=== PATIENT | male | born 1965 | race Caucasian/White ===

== ENCOUNTER 2024-07-28 18:40 | Emergency (ER) | payer OTHER ==
[~2024-07-28] VITALS: Ht 177.8 cm; Wt 117.9 kg
[2024-07-28 19:01] VITALS: BP_SYST 135; PULSE 90; RESP 18; TEMP 98.2; O2SAT 97
[2024-07-28 19:47] LABS: BASOPHILS # (AUTO) 0.2 K/uL (0.0-0.2); EOSINOPHILS # (AUTO) 0.1 K/uL (0.0-0.4); EOSINOPHILS % (AUTO) 0.8 % (0.0-4.0); HEMATOCRIT 39.7 % (36-54); HEMOGLOBIN 13.6 g/dL (14.0-18.0); LYMPHOCYTES # (AUTO) 1.9 K/uL (1.0-5.5); LYMPHOCYTES % (AUTO) 16.6 % (20.5-51.5); MEAN CORPUSCULAR HEMOGLOBIN 33 pg (27-31); MEAN CORPUSCULAR HGB CONC 34 % (32-36); MEAN CORPUSCULAR VOLUME 96 fL (79.0-98.0); MONOCYTES % (AUTO) 9.4 % (1.7-9.3); NEUTROPHILS # (AUTO) 7.9 K/uL (1.8-7.7); NEUTROPHILS % (AUTO) 71.2 % (40.0-70.0); PLATELET COUNT (AUTO) 168 K/uL (130-430); RED BLOOD CELL COUNT(AUTO) 4.15 MIL/uL (4.2-6.2); RED CELL DISTRIBUTION WIDTH 13.9 % (9.0-15.0); WHITE BLOOD COUNT (AUTO) 11.2 K/uL (4.8-10.8)
[2024-07-28] MEDS: NACL 0.9% 1,000 ML IV ONE (19:48)
[2024-07-28 20:00] LABS: ANION GAP 10 (5-15); CALCIUM 7.7 mg/dL (8.4-11.0); CARBON DIOXIDE 29 mmol/L (23-29); CHLORIDE 88 mmol/L (98-107); CREATININE 1.14 mg/dL (0.55-1.30); GFR AFRICAN AMERICAN 85 mL/min (>90); GLUCOSE 199 mg/dL (74-106); SODIUM SERUM 127 mmol/L (136-145); UREA NITROGEN, BLOOD 15 mg/dL (8-21)
[2024-07-28 20:01] LABS: GFR NON AFRICAN-AMERICAN 70 mL/min (>90)
[2024-07-28 20:34] VITALS: BP_SYST 140; PULSE 85; RESP 19; TEMP 98.5; O2SAT 97
== END 2024-07-28 20:34 | disposition home or self-care (01) ==
LOC: SED 18:40
DX: J44.1 Chronic obstructive pulmonary disease with (acute) exacerbation (principal); R53.1 Weakness
CPT/HCPCS: 99285; 96360; 71045; 80048; 83880; 85025; 84484; 36415; 93005; J7030

== ENCOUNTER 2024-07-30 09:16 | Inpatient (IN) | payer MEDICAID, OTHER ==
[~2024-07-30] VITALS: Ht 177.8 cm; Wt 117.9 kg
[2024-07-30 09:28] VITALS: BP_SYST 144; PULSE 84; RESP 20; TEMP 97.9; O2SAT 95
[2024-07-30] MEDS: IPRATROPIUM/ALBUTEROL SULFATE 3 ML AMPUL.NEB (DUONEB) INH ONE (09:42)
[2024-07-30] MEDS: methylPREDNISolone SOD SUCC/PF 62.5 MG/ML VIAL IVP ONE (09:42)
[2024-07-30 09:50] LABS: BASOPHILS # (AUTO) 0.1 K/uL (0.0-0.2); BASOPHILS % (AUTO) 0.7 % (0.0-2.0); EOSINOPHILS % (AUTO) 0.4 % (0.0-4.0); HEMATOCRIT 41.8 % (36-54); HEMOGLOBIN 14.4 g/dL (14.0-18.0); LYMPHOCYTES % (AUTO) 7.7 % (20.5-51.5); MEAN CORPUSCULAR HEMOGLOBIN 32 pg (27-31); MEAN CORPUSCULAR HGB CONC 35 % (32-36); MEAN CORPUSCULAR VOLUME 94 fL (79.0-98.0); MONOCYTES # (AUTO) 0.9 K/uL (0.0-1.0); MONOCYTES % (AUTO) 7.1 % (1.7-9.3); NEUTROPHILS # (AUTO) 10.5 K/uL (1.8-7.7); NEUTROPHILS % (AUTO) 84.1 % (40.0-70.0); PLATELET COUNT (AUTO) 165 K/uL (130-430); RED BLOOD CELL COUNT(AUTO) 4.46 MIL/uL (4.2-6.2); RED CELL DISTRIBUTION WIDTH 13.6 % (9.0-15.0); WHITE BLOOD COUNT (AUTO) 12.5 K/uL (4.8-10.8)
[2024-07-30 10:25] LABS: CALCIUM 7.5 mg/dL (8.4-11.0); CREATININE 0.79 mg/dL (0.55-1.30)
[2024-07-30 10:31] LABS: INFLUENZA TYPE A Negative (NEGATIVE); INFLUENZA TYPE B NEGATIVE (NEGATIVE)
[2024-07-30] MEDS: ONDANSETRON HCL 4 MG/2 ML VIAL IVP ONE (10:36)
[2024-07-30 10:37] LABS: ALBUMIN 3.2 g/dL (3.4-4.8); BILIRUBIN,DIRECT 3.7 mg/dL (0.0-0.3); TOTAL BILIRUBIN 6.2 mg/dL (0.0-1.0); TOTAL PROTEIN, SERUM 6.5 g/dL (6.4-8.3)
[2024-07-30] MEDS: NACL 0.9% 1,000 ML IV ONE (11:15)
[2024-07-30] MEDS ORDERED: ALBUTEROL SULFATE 0.083% 2.5 MG/3 ML VIAL.NEB INH PRN (11:30)
[2024-07-30] MEDS ORDERED: IPRATROPIUM BROM 0.5 MG/2.5 ML VIAL.NEB (ATROVENT) INH PRN (11:30)
[2024-07-30] MEDS: THIAMINE HCL 200 MG/2 ML VIAL IM ONE (11:30)
[2024-07-30] MEDS ORDERED: AMPICILLIN SODIUM/SULBACTAM NA 1.5 GM VIAL IV SCH (11:30)
[2024-07-30] MEDS ORDERED: ACETAMINOPHEN 325 MG TABLET PO PRN (11:30)
[2024-07-30 11:39] LABS: INR 1.5 (0.80-1.20); PROTHROMBIN TIME 15.7 SECS (9.5-12.5)
[2024-07-30 11:50] VITALS: BP_SYST 144; PULSE 84; O2SAT 97
[2024-07-30 13:00] VITALS: BP_SYST 142; RESP 18; TEMP 97.9; O2SAT 98
[2024-07-30] MEDS ORDERED: ENOXAPARIN SODIUM 30 MG/0.3 ML SYRINGE SUBCUT ONE (13:15)
[2024-07-30] MEDS ORDERED: LORazepam 2 MG/ML VIAL IVP SCH (13:15)
[2024-07-30] MEDS ORDERED: LORazepam 2 MG/ML VIAL IM PRN (13:45)
[2024-07-30] MEDS ORDERED: ENOXAPARIN SODIUM 40 MG/0.4 ML SYRINGE SUBCUT SCH (14:00)
[2024-07-30] MEDS ORDERED: NORMAL SALINE IV SCH (14:00)
[2024-07-30] MEDS ORDERED: AMPICILLIN IV SCH (14:00)
[2024-07-30] MEDS ORDERED: SULBACTAM NA IV SCH (14:00)
[2024-07-30] MEDS: PANTOPRAZOLE SODIUM 40 MG TAB PO ONE (14:34)
[2024-07-30] MEDS: ENOXAPARIN SODIUM 30 MG/0.3 ML SYRINGE SUBCUT ONE (14:35)
[2024-07-30] MEDS: chlordiazePOXIDE HCL 25 MG CAPSULE PO SCH ×2 (14:35→21:51)
[2024-07-30] MEDS: NACL 0.9% 1,000 ML IV SCH (14:36)
[2024-07-30] MEDS: AMPICILLIN IV ONE (15:33)
[2024-07-30] MEDS: SULBACTAM NA IV ONE (15:33)
[2024-07-30] MEDS: NORMAL SALINE IV ONE (15:33)
[2024-07-30] MEDS: LORazepam 2 MG/ML VIAL IM PRN (15:34)
[2024-07-30] MEDS: amLODIPine BESYLATE 10 MG TABLET PO SCH (17:15)
[2024-07-30] MEDS ORDERED: chlordiazePOXIDE HCL 25 MG CAPSULE PO SCH (19:00)
[2024-07-30 19:49] LABS: CALCIUM 7.4 mg/dL (8.4-11.0); CREATININE 1.04 mg/dL (0.55-1.30); POTASSIUM 4.7 mmol/L (3.5-5.1)
[2024-07-30 20:00] VITALS: BP_SYST 129; PULSE 85; RESP 18; TEMP 97.4; O2SAT 96
[2024-07-30] MEDS: AMPICILLIN IV SCH (21:51)
[2024-07-30] MEDS: SULBACTAM NA IV SCH (21:51)
[2024-07-30] MEDS: NORMAL SALINE IV SCH (21:51)
[2024-07-30 22:10] VITALS: O2SAT 95
[2024-07-31 00:34] VITALS: BP_SYST 133; PULSE 78; RESP 18; TEMP 97.4; O2SAT 97
[2024-07-31 04:19] LABS: BILIRUBIN,URINE NEGATIVE (NEGATIVE); BLOOD, URINE NEGATIVE (NEGATIVE); CLARITY/URINE CLEAR (CLEAR); COLOR,URINE YELLOW (YELLOW); GLUCOSE,URINE NEGATIVE (NEGATIVE); KETONES,URINE NEGATIVE (NEGATIVE); LEUKOCYTE ESTERASE ,URINE NEGATIVE (NEGATIVE); NITRITE, URINE NEGATIVE (NEGATIVE); PH,URINE 6.5 (5.0-8.0); PROTEIN URINE NEGATIVE (NEGATIVE); UROBILINOGEN,URINE 0.2 (0.2-1.0)
[2024-07-31 04:45] LABS: BASOPHILS % (AUTO) 0.1 % (0.0-2.0); HEMATOCRIT 39.4 % (36-54); LYMPHOCYTES # (AUTO) 0.5 K/uL (1.0-5.5); LYMPHOCYTES % (AUTO) 5.2 % (20.5-51.5); MEAN CORPUSCULAR HEMOGLOBIN 34 pg (27-31); MEAN CORPUSCULAR HGB CONC 36 % (32-36); MEAN CORPUSCULAR VOLUME 94 fL (79.0-98.0); MONOCYTES # (AUTO) 0.3 K/uL (0.0-1.0); MONOCYTES % (AUTO) 3.4 % (1.7-9.3); NEUTROPHILS # (AUTO) 9.4 K/uL (1.8-7.7); NEUTROPHILS % (AUTO) 91.3 % (40.0-70.0); PLATELET COUNT (AUTO) 151 K/uL (130-430); RED BLOOD CELL COUNT(AUTO) 4.19 MIL/uL (4.2-6.2); RED CELL DISTRIBUTION WIDTH 13.7 % (9.0-15.0); WHITE BLOOD COUNT (AUTO) 10.3 K/uL (4.8-10.8)
[2024-07-31 04:48] LABS: ALBUMIN 3.1 g/dL (3.4-4.8); CALCIUM 7.6 mg/dL (8.4-11.0); CREATININE 1.28 mg/dL (0.55-1.30); PHOSPHORUS 2.2 mg/dL (2.7-4.5); POTASSIUM 4.6 mmol/L (3.5-5.1); TOTAL PROTEIN, SERUM 6.4 g/dL (6.4-8.3)
[2024-07-31 05:03] LABS: BARBITURATE, URINE NEGATIVE (NEG <=200); BENZODIAZEPINE, URINE POSITIVE (NEG <=150); CANNABINOID, URINE NEGATIVE (NEG <=50); COCAINE, URINE NEGATIVE (NEG <=150); METHAMPHETAMINES SCREEN,URINE NEGATIVE (NEG <=500); OPIATE, URINE NEGATIVE (NEG <=100); PHENCYCLIDINE SCREEN,URINE NEGATIVE (NEG <=25); UR TRICYCLIC ANTIDEPRESSANTS NEGATIVE (NEG <=300); URINE AMPHETAMINE NEGATIVE (NEG <=500); URINE METHADONE NEGATIVE (NEG <=200); URINE OXYCODONE SCREEN NEGATIVE (NEG <=100)
[2024-07-31 08:00] VITALS: BP_SYST 138; PULSE 86; RESP 18; TEMP 98.6; O2SAT 98
[2024-07-31] MEDS ORDERED: LORazepam 2 MG/ML VIAL IM PRN (09:00)
[2024-07-31 10:01] LABS: TOTAL IRON BIND. CAPACITY 279 ug/dL (250-450)
[2024-07-31] MEDS: MORPHINE 2 MG/ML INJ. SYRINGE IVP PRN (10:55)
[2024-07-31 11:28] VITALS: BP_SYST 130; PULSE 92; RESP 18; TEMP 96.3; O2SAT 95
[2024-07-31 15:15] VITALS: BP_SYST 140; PULSE 113; RESP 16; TEMP 98.6; O2SAT 95
[2024-07-31 20:00] VITALS: BP_SYST 135; PULSE 102; RESP 20; TEMP 97.9; O2SAT 96
[2024-07-31] MEDS: chlordiazePOXIDE HCL 25 MG CAPSULE PO SCH (21:21)
[2024-08-01] VITALS (7 sets, daily range): BP systolic 120–146; PULSE 95–110; RESP 16–22; TEMP 97.3–98.7; O2SAT 93–99
[2024-08-01 07:06] LABS: HEPATITIS B CORE AB, TOTAL Positive (Negative)
[2024-08-01 08:06] LABS: ALPHA-1-ANTITRYPSIN, S 112 mg/dL (101-187); ANTI NUCLEAR AB WITH REFLEX Negative (Negative); IMMUNOGLOBULIN G, SERUM 1215 mg/dL (603-1613)
[2024-08-01] MEDS ORDERED: LORazepam 2 MG/ML VIAL IM PRN (08:45)
[2024-08-01] MEDS: LORazepam 2 MG/ML VIAL IVP ONE (08:56)
[2024-08-01] MEDS: BUDESONIDE 0.5 MG/2 ML AMPUL.NEB INH SCH (09:15)
[2024-08-01 10:31] LABS: BASOPHILS % (AUTO) 0.4 % (0.0-2.0); EOSINOPHILS % (AUTO) 0.5 % (0.0-4.0); HEMATOCRIT 38.1 % (36-54); HEMOGLOBIN 12.7 g/dL (14.0-18.0); LYMPHOCYTES # (AUTO) 0.9 K/uL (1.0-5.5); MEAN CORPUSCULAR HEMOGLOBIN 32 pg (27-31); MEAN CORPUSCULAR HGB CONC 33 % (32-36); MEAN CORPUSCULAR VOLUME 97 fL (79.0-98.0); MONOCYTES # (AUTO) 0.7 K/uL (0.0-1.0); MONOCYTES % (AUTO) 8.6 % (1.7-9.3); NEUTROPHILS # (AUTO) 6.3 K/uL (1.8-7.7); NEUTROPHILS % (AUTO) 79.5 % (40.0-70.0); PLATELET COUNT (AUTO) 97 K/uL (130-430); RED BLOOD CELL COUNT(AUTO) 3.93 MIL/uL (4.2-6.2); RED CELL DISTRIBUTION WIDTH 14.1 % (9.0-15.0); WHITE BLOOD COUNT (AUTO) 7.9 K/uL (4.8-10.8)
[2024-08-01] MEDS: THIAMINE HCL 100 MG in NS 50 ML IV ONE (10:31)
[2024-08-01 10:49] LABS: ALANINE AMINOTRANSFERASE 398 U/L (12-78); ALBUMIN 2.9 g/dL (3.4-4.8); ASPARTATE AMINOTRANSFERASE 279 U/L (10-37); CARBON DIOXIDE 35 mmol/L (23-29); CREATININE 1.58 mg/dL (0.55-1.30); GFR AFRICAN AMERICAN 58 mL/min (>90); GLUCOSE 185 mg/dL (74-106); SODIUM SERUM 130 mmol/L (136-145); TOTAL BILIRUBIN 2.3 mg/dL (0.0-1.0); UREA NITROGEN, BLOOD 15 mg/dL (8-21)
[2024-08-01 10:59] LABS: CHLORIDE 95 mmol/L (98-107); POTASSIUM 4.2 mmol/L (3.5-5.1)
[2024-08-01 11:01] LABS: GFR NON AFRICAN-AMERICAN 48 mL/min (>90)
[2024-08-01 11:02] LABS: ANION GAP < 3 (5-15)
[2024-08-01] MEDS: CARVEDILOL 3.125 MG TABLET (COREG) PO ONE (11:30)
[2024-08-01] MEDS: LACTULOSE 20 GM/30 ML UDC PO ONE (11:31)
[2024-08-01] MEDS: NEPHROVITE, (FOLIC ACID/VITAMIN B COMP W-C 1 TAB) PO ONE (11:31)
[2024-08-01] MEDS ORDERED: CARVEDILOL 3.125 MG TABLET (COREG) PO ONE (11:45)
[2024-08-01 12:18] LABS: ABG O2 SAT% ESTIMATE 90.3 % (94.0-98.0); BLOOD GAS BASE EXCESS 3.3 mmol/L (-2.0-3.0); BLOOD GAS HCO3 29.7 mmol/L (21.0-28.0); BLOOD GAS PCO2 52.6 mmHg (35.0-48.0); BLOOD GAS PO2 60.9 mmHg (83.0-108.0)
[2024-08-01 12:42] LABS: ALLEN'S TEST POSITIVE (P)
[2024-08-01] MEDS: D5W 1,000 ML IV SCH (14:50)
[2024-08-01] MEDS ORDERED: LACTULOSE 20 GM/30 ML UDC PO SCH (15:00)
[2024-08-01] MEDS: CARVEDILOL 6.25 MG TABLET (COREG) PO SCH (20:28)
[2024-08-01] MEDS: chlordiazePOXIDE HCL 25 MG CAPSULE PO SCH (20:28)
[2024-08-01] MEDS: LORazepam 2 MG/ML VIAL IVP PRN (20:54)
[2024-08-01] MEDS ORDERED: CARVEDILOL 3.125 MG TABLET (COREG) PO SCH (21:00)
[2024-08-01] MEDS: ONDANSETRON HCL 4 MG/2 ML VIAL IVP PRN (23:28)
[2024-08-02] VITALS (8 sets, daily range): BP systolic 114–150; PULSE 50–101; RESP 16–20; TEMP 97.1–98.6; O2SAT 91–97
[2024-08-02 06:27] LABS: INR 1.1 (0.80-1.20); PROTHROMBIN TIME 11.6 SECS (9.5-12.5)
[2024-08-02 06:30] LABS: ALBUMIN 2.8 g/dL (3.4-4.8); CALCIUM 7.9 mg/dL (8.4-11.0); CREATININE 1.32 mg/dL (0.55-1.30); POTASSIUM 4.4 mmol/L (3.5-5.1); TOTAL BILIRUBIN 1.6 mg/dL (0.0-1.0)
[2024-08-02 06:38] LABS: BASOPHILS % (AUTO) 0.3 % (0.0-2.0); EOSINOPHILS # (AUTO) 0.1 K/uL (0.0-0.4); EOSINOPHILS % (AUTO) 2.4 % (0.0-4.0); HEMATOCRIT 36.7 % (36-54); HEMOGLOBIN 12.3 g/dL (14.0-18.0); LYMPHOCYTES % (AUTO) 15.7 % (20.5-51.5); MEAN CORPUSCULAR HEMOGLOBIN 33 pg (27-31); MEAN CORPUSCULAR HGB CONC 34 % (32-36); MEAN CORPUSCULAR VOLUME 98 fL (79.0-98.0); MONOCYTES # (AUTO) 0.7 K/uL (0.0-1.0); MONOCYTES % (AUTO) 10.7 % (1.7-9.3); NEUTROPHILS # (AUTO) 4.4 K/uL (1.8-7.7); NEUTROPHILS % (AUTO) 70.9 % (40.0-70.0); PLATELET COUNT (AUTO) 106 K/uL (130-430); RED BLOOD CELL COUNT(AUTO) 3.76 MIL/uL (4.2-6.2); RED CELL DISTRIBUTION WIDTH 14.3 % (9.0-15.0); WHITE BLOOD COUNT (AUTO) 6.2 K/uL (4.8-10.8)
[2024-08-02 08:27] LABS: HEMOGLOBIN A1C 5.92 % (<5.7)
[2024-08-02] MEDS: LACTULOSE 20 GM/30 ML UDC PO SCH ×2 (09:14→15:03)
[2024-08-02] MEDS: ACETAMINOPHEN 325 MG TABLET PO PRN (09:15)
[2024-08-02] MEDS: NEPHROVITE, (FOLIC ACID/VITAMIN B COMP W-C 1 TAB) PO SCH (09:16)
[2024-08-02] MEDS: HEPARIN SODIUM,PORCINE 5,000 UNITS/ML VIAL SUBCUT SCH (09:17)
[2024-08-02 11:07] LABS: ANTI-SMOOTH MUSCLE AB 14 Units (0-19)
[2024-08-03] VITALS (7 sets, daily range): BP systolic 116–122; PULSE 78–91; RESP 14–18; TEMP 97.5–98.4; O2SAT 93–98
[2024-08-03 07:06] LABS: BASOPHILS % (AUTO) 0.2 % (0.0-2.0); EOSINOPHILS # (AUTO) 0.2 K/uL (0.0-0.4); EOSINOPHILS % (AUTO) 4.2 % (0.0-4.0); HEMATOCRIT 34.4 % (36-54); HEMOGLOBIN 11.5 g/dL (14.0-18.0); LYMPHOCYTES # (AUTO) 0.9 K/uL (1.0-5.5); LYMPHOCYTES % (AUTO) 19.8 % (20.5-51.5); MEAN CORPUSCULAR HEMOGLOBIN 33 pg (27-31); MEAN CORPUSCULAR HGB CONC 33 % (32-36); MEAN CORPUSCULAR VOLUME 98 fL (79.0-98.0); MONOCYTES # (AUTO) 0.4 K/uL (0.0-1.0); MONOCYTES % (AUTO) 8.7 % (1.7-9.3); NEUTROPHILS # (AUTO) 3.1 K/uL (1.8-7.7); NEUTROPHILS % (AUTO) 67.1 % (40.0-70.0); PLATELET COUNT (AUTO) 92 K/uL (130-430); RED BLOOD CELL COUNT(AUTO) 3.51 MIL/uL (4.2-6.2); WHITE BLOOD COUNT (AUTO) 4.6 K/uL (4.8-10.8)
[2024-08-03 08:10] LABS: ALBUMIN 2.6 g/dL (3.4-4.8); CALCIUM 7.9 mg/dL (8.4-11.0); CREATININE 1.22 mg/dL (0.55-1.30); THYROID STIMULATING HORMONE 3.42 uIu/mL (0.36-3.74); TOTAL BILIRUBIN 1.2 mg/dL (0.0-1.0); TOTAL PROTEIN, SERUM 5.7 g/dL (6.4-8.3)
[2024-08-03] MEDS ORDERED: IPRATROPIUM/ALBUTEROL SULFATE 3 ML AMPUL.NEB (DUONEB) INH PRN (11:45)
[2024-08-03] MEDS: NACL 0.9% 1,000 ML IV SCH (12:53)
[2024-08-03] MEDS ORDERED: ALBMDI INH (13:21)
[2024-08-03] MEDS ORDERED: BUDE6.9H INH (13:21)
[2024-08-03] MEDS ORDERED: LACT10PA5 PO (13:21)
[2024-08-03 13:33] LABS: COLLECTION TIME,URINE 24 HR
[2024-08-03 13:34] LABS: SODIUM TIMED,URINE 58 mmol/L; SODIUM URINE, 24HR CALC 8 mmol/24H (40-220); TOTAL VOLUME 24HRS,URINE 140 mL
[2024-08-05 07:07] LABS: HEPATITIS A AB, IgM Negative (Negative); HEPATITIS B CORE AB, IgM Negative (Negative); HEPATITIS B SURFACE AG Negative (Negative)
[2024-08-17 16:31] LABS: HEPATITIS C VIRUS AB REACTIVE (0.0-0.9)
== END 2024-08-03 17:20 | disposition home or self-care (01) | DRG 423 ==
LOC: SED 09:16 → STU 11:16
PROVIDERS: ADMIT Student in an Organized Health Care Education/Training Program; ATTEND Student in an Organized Health Care Education/Training Program
DX: E83.118 Other hemochromatosis (principal); G93.41 Metabolic encephalopathy; S36.119A Unspecified injury of liver, initial encounter; N17.9 Acute kidney failure, unspecified; E83.51 Hypocalcemia; D69.6 Thrombocytopenia, unspecified; E66.2 Morbid (severe) obesity with alveolar hypoventilation; J44.1 Chronic obstructive pulmonary disease with (acute) exacerbation; E87.1 Hypo-osmolality and hyponatremia; T51.91XA Toxic effect of unspecified alcohol, accidental (unintentional), initial encounter; F10.129 Alcohol abuse with intoxication, unspecified; Z20.822 Contact with and (suspected) exposure to COVID-19; F10.130 Alcohol abuse with withdrawal, uncomplicated; D72.829 Elevated white blood cell count, unspecified; E83.119 Hemochromatosis, unspecified; I10 Essential (primary) hypertension; Z68.37 Body mass index [BMI] 37.0-37.9, adult; Z79.899 Other long term (current) drug therapy; Z88.8 Allergy status to other drugs, medicaments and biological substances
CPT/HCPCS: 36415; 36600; 70450-TC; 71045; 76700; 80048; 80053; 80074; 80076; 80307; 81001; 81003; 82103; 82140; 82306; 82390; 82550; 82784; 82803; 83037; 83516; 83540; 83550; 83735; 83880; 84100; 84295; 84300-TC; 84302; 84443; 84484; 85025; 85379; 85610; 85730; 86038; 86704; 86706; 87040; 87086; 93005; 93306; 94070; 94640; 94760; 96375; 97116-GP; 97530-GP; 99285; G0378; J0295; J1644; J1650; J2060; J2270; J2405; J2930; J3411; J7030; J7060; J7626